=== PATIENT | female | born 1930 | race Caucasian/White ===

== ENCOUNTER 2016-06-25 14:22 | Observation (INO) | payer MEDICARE, OTHER ==
[~2016-06-25] VITALS: Ht 160 cm; Wt 74.0 kg
[~2016-06-25 14:22] MED LIST: APIX5TAB PO; CHOL5000 PO; DEXI60CA PO; DICL1GEL7 TOPICAL; GABA100C4 PO; ISOS60TA PO; LEVO50TA4 PO; MECL1TAB7 PO; METO25TA6 PO; NAPR220T95 PO; NITR1SUB3 SL; ROSU5 PO
[2016-06-25 15:06] VITALS: BP 183/88; PULSE 102; RESP 32; TEMP 97.9; O2SAT 97
[2016-06-25] MEDS ORDERED: ASPIRIN 81 MG CHEW TAB PO ONE (15:15)
[2016-06-25] MEDS ORDERED: SODIUM CHLORIDE 0.9% FLUSH 10 ML FLUSH IVF PRN (15:15)
--- NOTE | 2016-06-25 15:16 | PD ---
HPI Chief Complaint: Chest Pain Time Seen by Provider: 15:16 Travel History International Travel<30 days: No Contact w/Intl Traveler<30days: No Traveled to known affect area: No History of Present Illness HPI 85-year-old female with history of atrial fibrillation, pacemaker implantation, hypertension, hypothyroidism presents to the emergency department for evaluation of chest pain. Patient states that she has had midsternal dull aching chest pain intermittently with exertion for the past year. States that this pain has been very sporadic until the last week when it has been occurring daily. States that with minimal exertion this chest pain is brought on and it is alleviated with rest. States that today she was not feeling well and tried to eat lunch but became very nauseous and had multiple episodes of nonbloody nonbilious emesis. States that with this nausea and vomiting she was experiencing the chest pain, lightheadedness and diaphoresis. She denies fever , chills, shortness of breath, difficulty breathing, abdominal pain, diarrhea, constipation, cough or cold symptoms. She has nitroglycerin tablets that are prescribed to her but has not taken any of these for her chest pain. She denies any history of DC. States that her last heart catheterization was 2 years ago but thinks that this was for her atrial fibrillation. Denies any history of stent placement for coronary artery disease. Last stress test 2 years ago. She is anticoagulated on Eliquis. Assistant Wrestling Coach is Dr. Frankel. PCP Dr. Bruno. No other complaints. 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) Cardiac Catheterization: Yes Cardiovascular Problems: Yes Diabetes: No Diminished Hearing: No Endocrine: No Gastrointestinal Disorders: Yes GERD: Yes (FOR 15 YRS) Genitourinary: No Hepatitis: No Hiatal Hernia: Yes Hypertension: Yes Immune Disorder: No Medical other: Yes (IBS, GERD, MACULAR DEGENERATION) Psychiatric: No Reproductive: No Thyroid Disease: No ?: Not Past Surgical History Abdominal Surgery: Yes (CHOLECYSTECTOMY, HIATAL HERNIA REPAIREDX3) Cardiac Surgery: No Cholecystectomy: Yes Ear Surgery: No Endocrine Surgery: No Eye Surgery: Yes (CATARACT BILATERALLY) Genitourinary Surgery: Yes (TUMOR REMOVED FROM BLADDER) Gynecologic Surgery: Yes (HYSTERECTOMY) Oral Surgery: Yes (TONSILECTOMYX3) Pacemaker: Yes Thoracic Surgery: No Tonsillectomy: Yes Other Surgery: Yes Social History Alcohol Use: No Tobacco Use: No Substance Use: No Allergies-Medications (Allergen,Severity, Reaction): Coded Allergies: Iodine (Verified Allergy, Severe, 05/22/16) Sulfa (Verified Allergy, Severe, 05/22/16) Erythromycin (Verified Adverse Reaction, Severe, N/V, 06/25/16) Reported Meds & Prescriptions Reported Meds & Active Scripts Active Reported Diclofenac Topical 1% Gel 1 Applic TOPICAL QID Crestor (Rosuvastatin Calcium) 5 Mg Tab 5 Mg PO DAILY Vitamin D3 (Cholecalciferol) 5,000 Unit Cap 5,000 Units PO DAILY Eq Motion Sickness Relief (Meclizine HCl) 25 Mg Tab 12.5 Tab PO BID Eliquis (Apixaban) 5 Mg Tab 5 Mg PO BID Metoprolol Succinate ER 24 HR (Metoprolol Succinate) 25 Mg Tab 25 Mg PO DAILY Isosorbide Mononitrate ER (Isosorbide Mononitrate) 60 Mg Tab 60 Mg PO DAILY Gabapentin 100 Mg Cap 100 Mg PO BID Dexilant (Dexlansoprazole) 60 Mg Cap 60 Mg PO BID Levothyroxine (Levothyroxine Sodium) 50 Mcg Tab 50 Mcg PO DAILY Aleve (Naproxen Sodium) 220 Mg Tab 220 Mg PO BID PRN Nitroglycerin SL (Nitroglycerin) 0.4 Mg Subl 0.4 Mg SL DIRECTED PRN ONE TABLET UNDER THE TONGUE NEEDED FOR CHEST PAIN, MAY REPEAT EVERY FIVE MINUTES FOR A TOTAL OF 3 DOSES OR CALL 911 IF NO RELIEF Review of Systems Except as stated in HPI: all other systems reviewed are Neg Physical Exam Narrative GENERAL: Well-nourished and well-developed pleasant elderly female patient in no acute distress. SKIN: Warm and dry. HEAD: Normocephalic and atraumatic. EYES: No injection, drainage, or hyphema noted. PERRLA. EOMI. ENT: No nasal drainage noted. Oropharynx is clear. NECK: Supple and the trachea is midline. CARDIOVASCULAR: Regular rate and rhythm. RESPIRATORY: Breath sounds are equal bilaterally with no accessory muscle use, wheezing, rhonchi, or crackles. GASTROINTESTINAL: Abdomen is soft, non-tender, and nondistended. MUSCULOSKELETAL: No obvious deformities, swelling, cyanosis, or ecchymosis is present throughout the upper and lower extremities. Patient has full range of motion without any signs of neurovascular compromise. NEUROLOGICAL: Awake, alert, and oriented. Normal speech and gait. Cranial nerves are grossly intact. Data Data Last Documented VS Vital Signs Date Time Temp Pulse Resp B/P Pulse Ox O2 Delivery O2 Flow Rate FiO2 06/25/16 16:49 72 20 154/70 99 Nasal Cannula 2 06/25/16 15:06 97.9 Orders Electrocardiogram (06/25/16 15:13) Basic Metabolic Panel (Bmp) (06/25/16 15:13) B-Type Natriuretic Peptide (06/25/16 15:13) Ckmb (Isoenzyme) Profile (06/25/16 15:13) Complete Blood Count With Diff (06/25/16 15:13) Comprehensive Metabolic Panel (06/25/16 15:13) Magnesium (Mg) (06/25/16 15:13) Prothrombin Time / Inr (Pt) (06/25/16 15:13) Act Partial Throm Time (Ptt) (06/25/16 15:13) Troponin I (06/25/16 15:13) Lipase (06/25/16 15:13) Chest, Single Ap (06/25/16 15:13) Ecg Monitoring (06/25/16 15:13) Bilateral Bp Monitoring (06/25/16 15:13) Iv Access Insert/Monitor (06/25/16 15:13) Oximetry (06/25/16 15:13) Sodium Chloride 0.9% Flush (Ns Flush) (06/25/16 15:15) Nitroglycerin Sl (Nitrostat Sl) (06/25/16 15:15) Aspirin Chew (Aspirin Chew) (06/25/16 15:15) Admit Order (Ed Use Only) (06/25/16 16:54) Activity Bed Rest With Brp (06/25/16 16:54) Vital Signs (Adult) Q4H (06/25/16 16:54) Cardiac Rhythm .As Directed (06/25/16 16:54) ^ Notify Dr: Other .PRN (06/25/16 16:54) ^ Notify Dr. Parameters (06/25/16 16:54) Resp Oxygen Nasal Cannula (06/25/16 ) Diet Npo (06/26/16 Breakfast) Diet Heart Healthy (06/25/16 Dinner) Ckmb (Isoenzyme) Profile (06/25/16 18:50) Ckmb (Isoenzyme) Profile (06/25/16 21:50) Troponin I (06/25/16 18:50) Troponin I (06/25/16 21:50) Electrocardiogram (06/25/16 16:54) Electrocardiogram (06/25/16 19:54) ^ Obtain (06/25/16 16:54) Sodium Chloride 0.9% Flush (Ns Flush) (06/25/16 17:00) Sodium Chloride 0.9% Flush (Ns Flush) (06/25/16 21:00) Acetaminophen (Tylenol) (06/25/16 17:00) Ondansetron Inj (Zofran Inj) (06/25/16 17:00) Clinical Material Handler / Telemetry CANELO.Q8H (06/25/16 16:54) Labs Laboratory Tests Test 06/25/16 15:50 White Blood Count 8.5 TH/MM3 Red Blood Count 3.90 MIL/MM3 Hemoglobin 11.1 GM/DL Hematocrit 35.1 % Mean Corpuscular Volume 90.1 FL Mean Corpuscular Hemoglobin 28.6 PG Mean Corpuscular Hemoglobin 31.7 % Concent Red Cell Distribution Width 15.0 % Platelet Count 151 TH/MM3 Mean Platelet Volume 7.7 FL Neutrophils (%) (Auto) 76.1 % Lymphocytes (%) (Auto) 15.0 % Monocytes (%) (Auto) 7.2 % Eosinophils (%) (Auto) 1.2 % Basophils (%) (Auto) 0.5 % Neutrophils # (Auto) 6.4 TH/MM3 Lymphocytes # (Auto) 1.3 TH/MM3 Monocytes # (Auto) 0.6 TH/MM3 Eosinophils # (Auto) 0.1 TH/MM3 Basophils # (Auto) 0.0 TH/MM3 CBC Comment DIFF FINAL Differential Comment Prothrombin Time 12.7 SEC Prothromb Time International 1.1 RATIO Ratio Activated Partial 24.7 SEC Thromboplast Time Sodium Level 141 MEQ/L Potassium Level 3.7 MEQ/L Chloride Level 109 MEQ/L Carbon Dioxide Level 22.3 MEQ/L Anion Gap 10 MEQ/L Blood Urea Nitrogen 18 MG/DL Creatinine 1.09 MG/DL Estimat Glomerular Filtration 48 ML/MIN Rate Random Glucose 102 MG/DL Calcium Level 8.5 MG/DL Magnesium Level 1.9 MG/DL Total Bilirubin 0.2 MG/DL Aspartate Amino Transf 23 U/L (AST/SGOT) Alanine Aminotransferase 18 U/L (ALT/SGPT) Alkaline Phosphatase 83 U/L Total Creatine Kinase 67 U/L Troponin I LESS THAN 0.02 NG/ML B-Type Natriuretic Peptide 171 PG/ML Total Protein 6.4 GM/DL Albumin 3.2 GM/DL Lipase 50 U/L MDM Medical Decision Making Medical Screen Exam Complete: Yes Emergency Medical Condition: Yes Differential Diagnosis ACS versus pleurisy versus unstable angina versus chest wall pain versus other Narrative Course 85-year-old female is brought to the emergency department by EMS for evaluation of exertional chest pain. Patient is afebrile, vital signs are stable. She is initially hypertensive with a blood pressure 183/88. EKG shows electronic atrial pacemaker with a ventricular rate of 70 bpm, no acute ST elevations or depressions. IV access is obtained, labs were drawn and sent. Patient is administered aspirin. CBC shows mild anemia with hemoglobin 11.1, otherwise unremarkable. CMP shows mild renal insufficiency with a creatinine of 1.09, GFR 48. This is consistent with previous lab values. Troponin is less than 0.02. BNP is minimally elevated at 171. Coags are unremarkable. Chest x-ray is negative for any acute abnormalities. Patient's blood pressure has improved after 3 nitroglycerin tablets. States her chest pain is also improved. She has remained stable here in the emergency department. She'll be admitted to chest pain center for repeat cardiac enzymes , EKGs and possible stress testing. I discussed the case with my attending physician Dr. Hunter who is aware of the patients history, physical examination findings, and treatment plan. Diagnosis Primary Impression: Chest pain Qualified Code: R07.9 - Chest pain, unspecified type Admitting Information Admitting Physician Requests: Observation Saadia Chadwick Jun 25, 2016 15:16 Saadia Chadwick Jun 25, 2016 15:16
[2016-06-25] MEDS: NITROGLYCERIN 0.4 MG SL 25 TABS/BTL SL SCH ×3 (15:49→17:25)
[2016-06-25 16:12] VITALS: BP 168/72; PULSE 76; RESP 20; O2SAT 89
[2016-06-25 16:14] LABS: APTT (PATIENT) 24.7 SEC (24.3-30.1); INTERNATIONAL NORMALIZED RATIO 1.1 RATIO; PROTHROMBIN TIME - PATIENT 12.7 SEC (9.8-11.6)
--- NOTE | 2016-06-25 16:20 | RADRPT ---
EXAM DATE/TIME: 06/25/2016 15:22 [facility] COMPARISON: No previous studies available for comparison. INDICATIONS : Nausea, and chest pain. MEDICAL HISTORY : Atrial fibrillation SURGICAL HISTORY : Pacemaker. ENCOUNTER: Initial ACUITY: 1 day PAIN SCORE: 4/10 LOCATION: Bilateral chest FINDINGS: Single portable frontal view the chest shows top normal heart size. A dual-lead pacing device overlie s the left chest. Chronic interstitial changes within the bases. No infiltrate or effusion. Eventrati on of the right hemidiaphragm. Cement augmentation changes at the thoracolumbar junction. CONCLUSION: No acute cardiopulmonary disease. Ritesh Roman Jr., MD on June 25, 2016 at 16:17 Board Certified Radiologist. This report was verified electronically.
[2016-06-25 16:35] LABS: ANION GAP 10 MEQ/L (5-15); AST (GOT) 23 U/L (15-37); AUTOMATED NEUTROPHIL # 6.4 TH/MM3 (1.8-7.7); BASOPHIL % 0.5 % (0.0-2.0); BICARBONATE 22.3 MEQ/L (21.0-32.0); BLOOD UREA NITROGEN 18 MG/DL (7-18); CHLORIDE 109 MEQ/L (98-107); EOSINOPHIL # 0.1 TH/MM3 (0-0.4); EOSINOPHIL % 1.2 % (0.0-4.0); GLOMERULAR FILTRATION RATE 48 ML/MIN (>89); HEMATOCRIT 35.1 % (35.0-46.0); HEMO FLAGS DIFF FINAL; LYMPHOCYTE # 1.3 TH/MM3 (1.0-4.8); MAGNESIUM 1.9 MG/DL (1.5-2.5); MEAN CELL VOLUME 90.1 FL (80.0-100.0); MEAN CORPUSCULAR HEMOGLOBIN 28.6 PG (27.0-34.0); MEAN CORPUSCULAR HGB CONC 31.7 % (32.0-36.0); MONO % 7.2 % (0.0-8.0); NEUT % 76.1 % (16.0-70.0); PLATELET COUNT 151 TH/MM3 (150-450); POTASSIUM 3.7 MEQ/L (3.5-5.1); SODIUM (NA) 141 MEQ/L (136-145); WHITE BLOOD COUNT 8.5 TH/MM3 (4.0-11.0)
[2016-06-25 16:40] LABS: ALKALINE PHOSPHATASE 83 U/L (45-117); ALT (GPT) 18 U/L (10-53); TOTAL BILIRUBIN ADULT 0.2 MG/DL (0.2-1.0)
[2016-06-25 16:47] LABS: CREATINE KINASE 67 U/L (26-192)
[2016-06-25 16:49] VITALS: BP 154/70; PULSE 72; RESP 20; O2SAT 99
[2016-06-25] MEDS ORDERED: ONDANSETRON HCL 4 MG/2 ML VIAL IV PRN (17:00)
[2016-06-25] MEDS ORDERED: ACETAMINOPHEN 500 MG CPLT PO PRN (17:00)
[2016-06-25] MEDS ORDERED: SODIUM CHLORIDE 0.9% FLUSH 10 ML FLUSH IV FLUSH PRN (17:00)
[2016-06-25 17:56] VITALS: O2SAT 99
[2016-06-25 19:40] VITALS: BP_SYST 126; BP_SYST 144; BP_DIAS 65; BP_DIAS 74; PULSE 68; RESP 18; TEMP 98; O2SAT 94
[2016-06-25] MEDS: SODIUM CHLORIDE 0.9% FLUSH 10 ML FLUSH IV FLUSH SCH (21:00)
[2016-06-26] VITALS: BP 131/74; PULSE 88; RESP 18; TEMP 98.4; O2SAT 98
[2016-06-26 01:18] VITALS: PULSE 65
[2016-06-26 04:09] VITALS: BP 149/70; PULSE 63; RESP 18; TEMP 98.8; O2SAT 97
[2016-06-26] MEDS ORDERED: NITROGLYCERIN 0.4 MG SL 25 TABS/BTL SL PRN (08:30)
[2016-06-26] MEDS: SODIUM CHLORIDE 0.9% FLUSH 10 ML FLUSH IV FLUSH SCH (09:00)
[2016-06-26 09:49] VITALS: PULSE 72
[2016-06-26] MEDS ORDERED: PANTOPRAZOLE SOD 40 MG DELAYED RELEASE TAB PO SCH (10:00)
[2016-06-26] MEDS ORDERED: ISOSORBIDE MONONITRATE 60 MG TAB PO SCH (10:00)
[2016-06-26] MEDS ORDERED: LEVOTHYROXINE SODIUM 50 MCG TAB PO SCH (10:00)
[2016-06-26] MEDS ORDERED: CHOLECALCIFEROL (VIT D3) 5000 UNIT CAP PO SCH (10:00)
[2016-06-26] MEDS ORDERED: METOPROLOL SUCCINATE 25 MG EXTENDED RELEASE TAB PO SCH (10:00)
[2016-06-26] MEDS ORDERED: GABAPENTIN 100 MG CAP PO SCH (10:00)
[2016-06-26] MEDS ORDERED: APIXABAN 5 MG TABLET PO SCH (10:00)
[2016-06-26] MEDS ORDERED: ATORVASTATIN 10 MG TAB PO SCH (11:00)
--- NOTE | 2016-06-26 11:28 | HHI.DCPOC ---
Discharge Care Plan Diagnosis: (1) Atypical chest pain Goals to Promote Your Health * To prevent worsening of your condition and complications * To maintain your health at the optimal level Directions to Meet Your Goals Take your medications as prescribed Follow your dietary instruction Follow activity as directed Keep your appointments as scheduled Take your immunizations and boosters as scheduled If your symptoms worsen call your PCP, if no PCP go to Urgent Care Center or Emergency Room Smoking is Dangerous to Your Health. Avoid second hand smoke Call the 24-hour hour crisis hotline for domestic abuse at Rachel Michael Jun 26, 2016 11:28
--- NOTE | 2016-06-26 13:57 | HHI.HP ---
HPI Primary Care Physician Teja Hoffmann MD Chief Complaint Chest pain and nausea History of Present Illness 85-year-old female with history of A. fib, hypertension and hypothyroidism presents to emergency room for further evaluation of chest discomfort. Endorses she has had intermittent chest pressure over the past month or 2. Over the past 2 weeks she has had exertional shortness of breath with mild chest pressure. Chest pain described as a "dull ache" located in her substernal area. No associated symptoms. Precipitating factors seems to be exertion when she gets short of breath. Relieving factors is resting when "I get my breath back." Endorses she is under a lot of stress with a of her close friend last week. Yesterday she had an episode of severe nausea, diaphoresis, and substernal chest discomfort. Vomited multiple nonbloody emesis yesterday. Called a close friend and arrived to ER via back. Endorses constant chest dullness since yesterday afternoon. Review of Systems General: No fatigue,weakness, fever, chills, recent illness, or change in appetite. Has been in her general state of health. HEENT: No CASTILLO, no vision changes, no nasal congestion or drainage, no dysphasia CV: No current chest pain or pressure. No palpitations, intermittent leg pain. Pacemaker placed 3 years ago due to dizziness and syncopal episodes. No recent syncopal episodes. Does not she had syncopal episode yesterday either. History of A. fib. States her A. fib is well controlled. Follows with Dr. Stevenson, cardiology. RESP: Shortness of breath on exertion 2 weeks No cough, wheeze, or upper respiratory infection. No recent use of antibiotics. GI: Nausea improved, no emesis since arrival to ER. In fact states "I am hungry. No bowel changes, diarrhea, constipation, pain, distention, melena, blood in the stool. Endorses intermittent abdominal discomfort. CAT scan of abdomen and pelvis completed by PCP. Has appointment with Dr. Rodriguez in 2 weeks for further evaluation of CAT scan results. Plans for EGD and colonoscopy. No unintentional weight gain or weight loss : No dysuria, urgency, frequency, hematuria, or history of kidney stones EXT: No lower leg edema, no paraesthesias MS: No discomfort or change in ROM NEURO: No change in memory, dizziness, difficulty with balance, LOC, motor/ sensory deficits PSYCH: No anxiety or depression. Endorses situational stress with a depth of a close friend last week. SKIN: No rashes, no concerning lesions Past Family Social History Allergies: Coded Allergies: Iodine (Verified Allergy, Severe, 05/22/16) Sulfa (Verified Allergy, Severe, 05/22/16) Erythromycin (Verified Adverse Reaction, Severe, N/V, 06/25/16) Past Medical History A. fib, hypertension, hypothyroidism, pacemaker hyperlipidemia, GERD Past Surgical History Cholecystectomy, hiatal hernia repair, cataract removal bilateral, tumor removed from bladder, hysterectomy Reported Medications Reported Meds & Active Scripts Active Reported Diclofenac Topical 1% Gel 1 Applic TOPICAL QID Crestor (Rosuvastatin Calcium) 5 Mg Tab 5 Mg PO DAILY Vitamin D3 (Cholecalciferol) 5,000 Unit Cap 5,000 Units PO DAILY Eq Motion Sickness Relief (Meclizine HCl) 25 Mg Tab 12.5 Tab PO BID Eliquis (Apixaban) 5 Mg Tab 5 Mg PO BID Metoprolol Succinate ER 24 HR (Metoprolol Succinate) 25 Mg Tab 25 Mg PO DAILY Isosorbide Mononitrate ER (Isosorbide Mononitrate) 60 Mg Tab 60 Mg PO DAILY Gabapentin 100 Mg Cap 100 Mg PO BID Dexilant (Dexlansoprazole) 60 Mg Cap 60 Mg PO BID Levothyroxine (Levothyroxine Sodium) 50 Mcg Tab 50 Mcg PO DAILY Aleve (Naproxen Sodium) 220 Mg Tab 220 Mg PO BID PRN Nitroglycerin SL (Nitroglycerin) 0.4 Mg Subl 0.4 Mg SL DIRECTED PRN ONE TABLET UNDER THE TONGUE NEEDED FOR CHEST PAIN, MAY REPEAT EVERY FIVE MINUTES FOR A TOTAL OF 3 DOSES OR CALL 911 IF NO RELIEF Active Ordered Medications Current Medications Medications (Trade) Dose Ordered Sig/Son Route Start Time Stop Time Status Last Admin (Tylenol) 500 mg Q4H PRN PO 06/25/16 17:00 06/26/16 04:11 (Zofran Inj) 4 mg Q6H PRN IV 06/25/16 17:00 (Nitrostat Sl) 0.4 mg Q5M PRN SL 06/26/16 08:30 (Eliquis) 5 mg BID PO 06/26/16 10:00 06/26/16 10:17 (Vitamin D3) 5,000 units DAILY PO 06/26/16 10:00 06/26/16 10:16 (Neurontin) 100 mg BID PO 06/26/16 10:00 06/26/16 10:17 (Imdur) 60 mg DAILY PO 06/26/16 10:00 06/26/16 10:17 (Synthroid) 50 mcg DAILY@0600 PO 06/26/16 10:00 06/26/16 10:16 (Toprol Xl) 25 mg DAILY PO 06/26/16 10:00 06/26/16 10:17 (Protonix) 40 mg BID PO 06/26/16 10:00 06/26/16 10:17 (Lipitor) 10 mg DAILY PO 06/26/16 11:00 06/26/16 10:16 Social History , moved from [place] 2 years ago, Lifelong nonsmoker. Denies any alcohol or illegal drug use. Active, as able, on a daily basis. Ambulates independently. Past cardiac testing No recent stress testing. Endorses cardiac catheterization, 2-3 years ago, was told it was normal. Pacemaker. Follows with Dr. Freedman. Physical Exam Vital Signs Vital Signs Date Time Temp Pulse Resp B/P Pulse Ox O2 Delivery O2 Flow Rate FiO2 06/26/16 09:49 72 06/26/16 04:09 98.8 63 18 149/70 97 06/26/16 01:18 65 06/26/16 00:00 98.4 88 18 131/74 98 06/25/16 19:40 98.0 68 18 144/65 94 06/25/16 17:56 99 Nasal Cannula 3.00 06/25/16 16:49 72 20 154/70 99 Nasal Cannula 2 06/25/16 16:12 76 20 168/72 89 Nasal Cannula 2 06/25/16 15:06 97.9 102 32 183/88 97 Physical Exam GENERAL: Alert WN, WD, NAD, pleasant, elderly female HEAD: NC, AT EYES: Sclera clear, conjunctiva without injection, pupils equal and round ENT: Mucous membranes pink and moist NECK: Supple, trachea midline CV: RRR, without murmur, rub, gallop, no JVD, S1-S2 no S3-S4. RESP: Clear lungs throughout bilateral, no crackles, wheeze, rhonchi, symmetrical chest rise, nonlabored, able to speak in full sentences ABD: Soft, NT, ND, no masses, positive bowel tones EXT: Pulses +24, no dependent edema MS: Normal tone 4 extremities, nontender, no obvious deformities, full range of motion NEURO: CN II through CN XII grossly intact, motor strength 5/5, gait WNL PSYCH: A+O 3, pleasant affect, appropriate speech, appropriate mood and affect , insight and judgment SKIN: Normal turgor, normal texture, no lesions, no rashes, brisk cap refill, even hair distribution Laboratory Laboratory Tests Test 06/25/16 06/25/16 06/25/16 06/26/16 15:50 18:45 21:50 10:45 White Blood Count 8.5 Red Blood Count 3.90 Hemoglobin 11.1 Hematocrit 35.1 Mean Corpuscular Volume 90.1 Mean Corpuscular Hemoglobin 28.6 Mean Corpuscular Hemoglobin 31.7 Concent Red Cell Distribution Width 15.0 Platelet Count 151 Mean Platelet Volume 7.7 Neutrophils (%) (Auto) 76.1 Lymphocytes (%) (Auto) 15.0 Monocytes (%) (Auto) 7.2 Eosinophils (%) (Auto) 1.2 Basophils (%) (Auto) 0.5 Neutrophils # (Auto) 6.4 Lymphocytes # (Auto) 1.3 Monocytes # (Auto) 0.6 Eosinophils # (Auto) 0.1 Basophils # (Auto) 0.0 CBC Comment DIFF FINAL Differential Comment Prothrombin Time 12.7 Prothromb Time International 1.1 Ratio Activated Partial 24.7 Thromboplast Time Sodium Level 141 Potassium Level 3.7 Chloride Level 109 Carbon Dioxide Level 22.3 Anion Gap 10 Blood Urea Nitrogen 18 Creatinine 1.09 Estimat Glomerular Filtration 48 Rate Random Glucose 102 Calcium Level 8.5 Magnesium Level 1.9 Total Bilirubin 0.2 Aspartate Amino Transf 23 (AST/SGOT) Alanine Aminotransferase 18 (ALT/SGPT) Alkaline Phosphatase 83 Total Creatine Kinase 67 60 58 Troponin I LESS THAN 0.02 0.02 0.02 B-Type Natriuretic Peptide 171 Total Protein 6.4 Albumin 3.2 Lipase 50 D-Dimer Quantitative (PE/DVT) 0.34 Result Diagram: 06/25/16 1550 06/25/16 1550 Imaging Last Impressions Chest X-Ray 06/25/16 1513 Signed Impressions: Service Date/Time: Saturday, June 25, 2016 15:22 - CONCLUSION: No acute cardiopulmonary disease. Ritesh Roman Jr., MD Course EKGs Atrial paced, no ST or T-segment changes Assessment and Plan Assessment and Plan #1 Chest painadmitted to chest pain center. Ruled out with 3 sets of EKGs, cardiac enzymes, and monitored overnight. Was seen and evaluated by Dr. Yesy Fernandez. Call patient's marine technician, Dr. Stevenson, to discuss plan of care. [facility] patient had a cardiac catheterization 2 years ago with the conclusion of normal coronary arteries. No further cardiac testing required. Dr. Stevenson request to see patient in 7-10 days after being ruled out for PE. #2 A. fibcontinue antiarrhythmics and eliquis #3 Hypothyroidismcontinue levothyroxine #4 Nauseaimproved, tolerating diet, follow with PCP as needed. She appointment with GI consult. Rachel Michael Jun 26, 2016 13:57
--- NOTE | 2016-06-26 21:38 | EKG ---
Date Performed: 06/25/2016 Time Performed: 21:46:22 PTAGE: 85 years EKG: ELECTRONIC ATRIAL PACEMAKER ABNORMAL RHYTHM ECG Since PREVIOUS TRACING , no significant change noted PREVIOUS TRACIN06/25/2016 18.47 DOCTOR: Yesy Fernandez Interpretating Date/Time 06/26/2016 21:37:26
--- NOTE | 2016-06-26 21:39 | EKG ---
Date Performed: 06/25/2016 Time Performed: 18:47:46 PTAGE: 85 years EKG: ELECTRONIC ATRIAL PACEMAKER ABNORMAL RHYTHM ECG Since PREVIOUS TRACING , no significant change noted PREVIOUS TRACIN06/25/2016 15.39 DOCTOR: Yesy Fernandez Interpretating Date/Time 06/26/2016 21:38:13
--- NOTE | 2016-06-27 14:33 | EKG ---
Date Performed: 06/25/2016 Time Performed: 15:39:00 PTAGE: 85 years EKG: ELECTRONIC ATRIAL PACEMAKER ABNORMAL RHYTHM ECG Since PREVIOUS TRACING , no significant change noted PREVIOUS TRACIN11/18/2010 11.40 DOCTOR: Yesy Fernandez Interpretating Date/Time 06/27/2016 14:31:07
== END 2016-06-26 16:05 | disposition home or self-care (01) ==
LOC: NEPC 14:22 → NEDA 17:00 → NEPGCP 20:14
PROVIDERS: ADMIT Internal Medicine Cardiovascular Disease; ATTEND Internal Medicine Cardiovascular Disease
DX: R07.9 Chest pain, unspecified (principal); I48.91 Unspecified atrial fibrillation; I10 Essential (primary) hypertension; E03.9 Hypothyroidism, unspecified; R11.2 Nausea with vomiting, unspecified; R61 Generalized hyperhidrosis; R42 Dizziness and giddiness; Z79.01 Long term (current) use of anticoagulants; Z85.51 Personal history of malignant neoplasm of bladder; K21.9 Gastro-esophageal reflux disease without esophagitis; K44.9 Diaphragmatic hernia without obstruction or gangrene; Z79.899 Other long term (current) drug therapy; D64.9 Anemia, unspecified; N28.9 Disorder of kidney and ureter, unspecified; E78.5 Hyperlipidemia, unspecified; Z95.0 Presence of cardiac pacemaker
CPT/HCPCS: 71010; 80053; 82550; 83690; 83735; 83880; 84484; 85025; 85379; 85610; 85730; 93005; 99285; G0378

== ENCOUNTER 2016-08-13 07:37 | Day surgery (SDC) | payer MEDICARE, OTHER ==
[~2016-08-13] VITALS: Ht 160 cm; Wt 74.5 kg
[2016-08-13 08:43] VITALS: BP 132/74; PULSE 93; RESP 16; TEMP 97.9; O2SAT 97
[2016-08-13 09:09] LABS: AUTOMATED NEUTROPHIL # 4.3 TH/MM3 (1.8-7.7); BASOPHIL # 0.1 TH/MM3 (0-0.2); EOSINOPHIL # 0.3 TH/MM3 (0-0.4); EOSINOPHIL % 4.3 % (0.0-4.0); HEMATOCRIT 36.2 % (35.0-46.0); HEMO FLAGS DIFF FINAL; LYMPH % 29.3 % (9.0-44.0); LYMPHOCYTE # 2.2 TH/MM3 (1.0-4.8); MEAN CELL VOLUME 87.9 FL (80.0-100.0); MEAN CORPUSCULAR HEMOGLOBIN 28.9 PG (27.0-34.0); MEAN CORPUSCULAR HGB CONC 32.9 % (32.0-36.0); MONO % 8.6 % (0.0-8.0); NEUT % 56.8 % (16.0-70.0); PLATELET COUNT 132 TH/MM3 (150-450); RED BLOOD COUNT 4.12 MIL/MM3 (4.00-5.30); RED CELL DISTRIBUTION WIDTH 14.9 % (11.6-17.2); WHITE BLOOD COUNT 7.6 TH/MM3 (4.0-11.0)
[2016-08-13] MEDS ORDERED: NS 1000P @30 MLS/HR (KVO) IV SCH (09:15)
[2016-08-13] MEDS ORDERED: ASPIRIN 325 MG TAB PO SCH (09:15)
[2016-08-13] MEDS ORDERED: HEPARIN-NS/PF INJ 500 ML ONE (09:19)
[2016-08-13] MEDS ORDERED: diphenhydrAMINE HCL 50 MG/ML VIAL ONE (09:19)
[2016-08-13] MEDS ORDERED: HYDROCORTISONE SOD SUCCINATE 100 MG VIAL ONE (09:20)
[2016-08-13] MEDS ORDERED: HYDROCORTISONE SOD SUCCINATE 100 MG VIAL IV PUSH SCH (09:30)
[2016-08-13 09:33] LABS: BICARBONATE 26.5 MEQ/L (21.0-32.0)
[2016-08-13 09:34] LABS: POTASSIUM 4.8 MEQ/L (3.5-5.1)
--- NOTE | 2016-08-13 10:53 | MA ---
cc: BALWINDER CARDONA M.D., WAHBA MAKARY, WAFIK F. M.D. DATE: 08/13/2016 PROCEDURE 1. Left heart cath. 2. Coronary arteriogram. 3. Left ventriculogram. 4. Right femoral arteriogram. 5. Right femoral arteriotomy site closure using a StarClose device. WAREHOUSE TRAFFIC SUPERVISOR Balwinder Cardona MD INDICATION Recurrent chest tightness despite medical therapy and an abnormal nuclear stress study. Because of her persistent symptoms she was advised to proceed with a cardiac catheterization. (please refer to further details per my H&P attached to the chart). EQUIPMENT 6-Iraqi short sheath. 0.035 J guidewire. 6-Iraqi JL-4, JR-4 and pigtail diagnostic catheters. A StarClose device. PROCEDURE After obtaining informed consent the right groin was prepped in the usual sterile fashion. 15 ccs of 1% were used for local anesthesia. Using the modified Seldinger technique the right femoral artery was cannulated and 6-Iraqi short sheath was inserted in the right femoral artery. Using the above-mentioned diagnostic catheters selective coronary angiograms were performed. This was followed by left ventriculogram performed in the ESCOBAR view at 30 degree angle. At the end of the procedure right femoral system was injected revealing no significant disease and a StarClose device was applied achieving adequate hemostasis. The patient tolerated the procedure well without acute complication at the time of dictation. CARDIAC CATHETERIZATION FINDINGS HEMODYNAMICS Aortic pressure was 170. 5/75 mmHg. Mean aortic pressure 108 mmHg. There was no gradient across the aortic valve. Left ventricular end-diastolic pressure was 22 mmHg. CORONARIES Left main artery was from left sinus of Valsalva. This had an ostial less than 10% disease. Left anterior descending artery branched from the left main artery, had somewhat calcified proximal 20% to mid 30% disease at the site of a diagonal branch. This diagonal branch had an ostial 60-70% stenosis and the proximal 40% disease. The LAD then extended distally to wrap around the apex in a tortuous fashion with diffuse irregularities ranging between 20-30%. It gave other diagonal septal branches of mild luminal irregularities of less than 20%. Left circumflex artery branched from the left main artery. This was relatively small caliber vessel and had mild diffuse irregularities of less than 10%. Giving atrial branch from the distal portion that was within normal limits. Ramus intermediate artery branched from the left main artery also had mild irregularities of less than 20%. Right coronary artery was from right sinus of Valsalva and this was a dominant vessel, the ostium had a 30-40% narrowing, somewhat calcified. No damping of pressure upon cannulation. The mid RCA had 20-30% diffuse irregularities. Distally it gave a PDA and PLV arteries that had multiple other smaller branches, with minimal irregularities. The PDA had an ostial 20-30%. The mid RV branch had mild luminal irregularities of less than 20%. Left ventriculogram revealed adequate wall motion, preserved systolic function. Ejection fraction visual estimate around 60-65%. CONCLUSION OF CARDIAC CATHETERIZATION 1. Mild epicardial coronary artery disease, calcified. Mild disease of the LAD and the right coronary artery. 2. ____ significant ostial diagonal branch disease, relatively small caliber (2.0 mm) will be treated medically. 3. Normal left ventricular systolic function. 4. Elevated left ventricular end-diastolic pressure. RECOMMENDATION Recommendations would be medical therapy with tight control of risk factors. MD MORGAN Trinidad/AWILDA /10:20 AM /10:32 AM
--- NOTE | 2016-08-13 11:30 | EKG ---
Date Performed: 08/13/2016 Time Performed: 08:51:12 PTAGE: 85 years EKG: Demand atrial pacing. Abnormal ECG PREVIOUS TRACING : 06/25/2016 21.46 DOCTOR: Anson Adams Interpretating Date/Time 08/13/2016 11:28:14
[2016-08-13] MEDS ORDERED: IOHEXOL 350 MG/ML 50 ML BTL (for Cath Lab) OTHER ONE (11:34)
--- NOTE | 2016-08-13 11:41 | CATHPROC ---
[employer] HIS Report Study Information Study Number Admission Scheduled Start Study Start [id number] 08/13/2016 08/13/2016 Aug 13 2016 8:20AM Referring Institution Admit Source Facility Department 1 Other [facility] Dietary Tech Physician and Clinical Staff Initial Balwinder Orellana Insurance Administrative Assistant Sudha Gold,SHU Recorder Lissy Jonas,RT(R) (BS) Scrub Ludin Salinas RCIS(BS) Procedures Performed Procedure Location (Site) Vessel Name Angiogram LV LV Ventricle Coronary Angiograms LCA Left Coronary Coronary Angiograms RCA Right Coronary L Heart Cath Equipment Time Freight Receiver Description Size Mfg Part Number Used/Scraped STARCLOSE, VASCULAR CLOSER 09:59 [place] [id number] Used SYSTEM TRANSDUCER, TRUWAVE 08:21 [employer]blob * [id number] Used W/STOCKCOCK [id number] *[id number] *[id number] PIGTAIL ANG. 145 INFINITI [id number] CATHETER *[id number] 08:21 [employer] PACK, CCL CUSTOM * Used *[id number] 08:21 GLOG PACER PEN, SKIN DUAL W/ RULER * [id number] Used [id number] 08:21 [facility] MEDICAL SHEATH, FR6.5 PRELUDE 11CM FR 6.5 038ACT Used *[id number] 08:21 [facility] MEDICAL WIRE, 3MMJ .035 180CM 180CM Used *[id number] 08:21 NAMIC MANIFOLD, 4 PORT * Used *[id number] 08:21 [employer] OMNIPAQUE, 350 MG, 100ML 100ML [id number] Used [id number] 08:21 [employer] MED[employer] BLANKET,WARM AIR CCL * Used *[id number] History: Current Medications Medication Dosage/Unit Route Frequency Last Date/Time Taken CRESTOR Beta Archana History: Allergies Allergy Reaction Erythromycin N/V Iodine Sulfa Ranexa History: Risk Factors Family History of Hypertension Dyslipidemia Previous KS Previous Heart Failure Premature CAD Yes Yes No No No Prior Valve Prior PCI Prior CABG Surgery No No No Cerebrovascular Peripheral Artery Chronic Lung On Dialysis Diabetes Disease Disease Disease No Yes No Yes No History: Symptoms/Diagnosis Selection Items Chest pain History: Stress Tests Stress or Imaging Studies Performed No History: Other Current Smoker No Labs Hgb (g/dl) Hct (%) RBC (MIL/MM3) WBC (l/cumm) Platelets (thousands) 12.00-18.00 37.00-55.00 4.80-6.20 4.80-10.80 140.00-450.00 11.9 36.2 4.1 7.6 132 Glucose (mg/dl) BUN (mg/dl) Creatinine (mg/dl) BUN:Creatinine (1:x) 60.00-110.00 8.00-20.00 0.10-9.00 10.00-20.00 93 21 1.2 17.5 Na (meq/l) K (meq/l) Cl (meq/l) CO2 (mmol/L) 138.00-146.00 3.80-5.10 101.00-111.00 23.00-30.00 143 4.8 107 26.5 CPK-MB (ng/ML) 0.00-7.00 Not Drawn Medication Medication Total Dose (Bolus/Oral) Medication Total Dosage/Unit 1% XYLOCAINE 20 mL BENADRYL 50 mg FENTANYL 50 mcg HEPARIN 1000 units NTG (IC) 100 mcg SOLU-CORTEF 100 mg Medications (Bolus/Oral) Medication Time Given Dosage/Unit Administered By Reason SOLU-CORTEF 08/13/2016 9:26:51 AM 100 mg Mrache, Sudha 100 mg SOLU-CORTEF given pre op by Sudha Gold RN in Right Wrist via Peripheral IV. BENADRYL 08/13/2016 9:32:52 AM 50 mg Mrache, Sudha 50 mg BENADRYL given in lab by Sudha Gold RN in Right Wrist via Peripheral IV. FENTANYL 08/13/2016 9:33:08 AM 50 mcg Mrache, Sudha 50 mcg FENTANYL given in lab by Sudha Gold RN in Right Wrist via Peripheral IV. 1% XYLOCAINE 08/13/2016 9:34:33 AM 20 mL Balwinder Stevenson 20 mL 1% XYLOCAINE given in lab by Balwinder Stevenson in Right Groin via Subcutaneous. HEPARIN 08/13/2016 9:41:53 AM 1000 units Balwinder Stevenson 1000 units HEPARIN given in lab by Balwinder Stevenson in Right Groin via Intra-arterial. NTG (IC) 08/13/2016 9:44:51 AM 100 mcg Balwinder Stevenson 100 mcg NTG (IC) given in lab by Balwinder Stevenson in Right Groin via Intra-coronary. Medication (Drip) Medication Time Given Dosage/Unit Concentration/Unit Diluent (ml) Solutio n IV Solutions 08/13/2016 9:16:41 AM 0 mL (IV) 500 NaCl .9 IV Solutions given in lab by Sudha Gold RN in Right Wrist via Peripheral IV. Pump/Drip Flow = 20 ml/hr using NaCl .9. Initial Case Assessment Cardiovascular HR Rhythm NIBP Chest Pain 90 reg 145/73 0 Edema Present Skin color Skin None Normal Warm Dry Circulatory - Right Pulses Dorsalis Pedis Femoral 1 1 Scale (0,1,2,3,4,d) Circulatory - Left Pulses Dorsalis Pedis Femoral 1 1 Scale (0,1,2,3,4,d) Circulatory - Lower Extremities Color Lower Right Color Lower Left Normal Normal Neurological State Oriented to time-place- Moves all extremities person Respiration - General Respiration Rate SpO2 (%) (B/min) 13 99 Chronological Log Time Study Chronological Log 9:16:11 Patient arrived via Bed. 9:16:12 Patient Name, D.O.B, / Armband Verified By R.N. 9:16:14 Consent signed by the physician and the patient and verified by the Dietary Tech staff. 9:16:15 Pre-op and post- op instructions given; patient acknowledges understanding of instructions. 9:16:32 Presedation assessment performed by Dietary Tech RN. 9:16:35 Patient has been NPO for More than 6Hrs. 9:16:36 Skin Breakdown none per pt 9:16:38 Patient Warmer Placed on the Table. 9:16:39 Chung Prominences Protected 9:16:39 A # 22 IV was noted in the Wrist (right). Grade = 0 IV Solutions given in lab by Sudha Gold, SHU in Right Wrist via Peripheral IV. Pump/Drip F low = 20 ml/hr using 9:16:41 NaCl .9. 9:16:42 History and physical on the chart or being dictated. Assessment: Initial Case, HR=90 BPM, Rhythm=reg, VESP=376/73 mmhg, Chest Pain=0, Edema=None, Col or=Normal, Skin = Warm, Dry Right Pulses: Karson Ped=1, Femoral=1 Left Pulses: Karson Ped=1, Femoral=1 9:16:45 Lower Right Extremities: Color=Normal Lower Left Extremities: Color=Normal Neurological: Ox3, SHELTON Respiration: Resp=13 B/min, SpO2=99 % Vitals capture started with the following parameters, Patient=Adult, Interval=15 min, Initial Pr padoye=641 mmHg, 9:21:25 Deflation Rate=5 mmHg 9:22:06 HR=90 bpm, VTKD=003/73 mmhg, SpO2=98.0 %, Resp=12 B/min, Pain=0, Ailyn=10, Cohen=2 9:24:41 Bilateral groins prepped with 2% chlorhexidine, and with a 3 min. waiting time. 9:26:51 100 mg SOLU-CORTEF given pre op by Sudha Gold, SHU in Right Wrist via Peripheral IV. 9:27:29 HR=89 bpm, VKPT=139/82 mmhg, LtN3=327.0 %, Resp=24 B/min, Pain=0, Ailyn=10, Cohen=2 9:27:49 MD arrived Time Out. Correct patient, correct procedure,correct physician, power injector not loaded with c ontrast with surgical 9:30:15 team present. Time Out Concurred by MD, individual staff in procedure 9:30:34 Case Start 9:32:06 HR=91 bpm, SXJT=482/82 mmhg, SpO2=96.0 %, Resp=10 B/min, Pain=0, Ailyn=10, Cohen=2 9:32:37 Pressure channel 1 zeroed. 9:32:52 50 mg BENADRYL given in lab by Sudha Gold, SHU in Right Wrist via Peripheral IV. 9:33:08 50 mcg FENTANYL given in lab by Sudha Gold, SHU in Right Wrist via Peripheral IV. 9:33:26 Reference ECG taken 9:34:33 20 mL 1% XYLOCAINE given in lab by Balwinder Stevenson in Right Groin via Subcutaneous. 9:36:11 Access site was Right Femoral Artery. 9:36:50 Pressure being held on access site 9:37:05 HR=90 bpm, BFRQ=312/80 mmhg, SpO2=93.0 %, Resp=17 B/min, Pain=0, Ailyn=10, Cohen=2 9:39:28 Access site was Right Femoral Artery. 9:39:53 A SHEATH, FR6.5 PRELUDE 11CM FR 6.5 was advanced into the Fem Art (right) using the Percutan eous technique. 9:41:53 1000 units HEPARIN given in lab by Balwinder Stevenson in Right Groin via Intra-arterial. 9:42:08 HR=98 bpm, BNCU=619/78 mmhg, SpO2=92.0 %, Resp=9 B/min, Pain=0, Ailyn=10, Cohen=2 A JL 4.0 INFINITI CATHETER FR 6 was advanced over a wire. OMNIPAQUE, 350 MG, 100ML 100ML was use d for 9:42:18 injections. Recorded Pressure: Ao, HR=88, Condition=Condition 1 9:44:06 (Aorta) Ao 171/73/120 9:44:51 100 mcg NTG (IC) given in lab by Balwinder Stevenson in Right Groin via Intra-coronary. 9:45:23 The LCA was injected and visualized at various angles. OMNIPAQUE, 350 MG, 100ML 100ML used. 9:47:11 HR=87 bpm, ARNO=504/65 mmhg, SpO2=94.0 %, Resp=12 B/min, Pain=0, Ailyn=10, Cohen=2 After removing the current catheter a JR 4.0 INFINITI CATHETER FR 6 was advanced over a WIRE, 3M MJ .035 180CM 9:47:54 180CM. 9:49:09 The RCA was injected and visualized at various angles. OMNIPAQUE, 350 MG, 100ML 100ML used. After removing the current catheter a PIGTAIL ANG. 145 INFINITI CATHETER FR 6 was advanced over a WIRE, 3MMJ 9:50:36 .035 180CM 180CM. Recorded Pressure: LV, HR=89, Condition=Condition 1 9:51:51 (Left Ventricle) LV 174/6/18 9:52:06 IZ=233 bpm, TJBF=102/76 mmhg, SpO2=93.0 %, Resp=13 B/min, Pain=0, Ailyn=10, Cohen=2 9:52:55 The LV was injected at 10 cc/sec for a total of 22. OMNIPAQUE, 350 MG, 100ML 100ML used. Recorded Pressure: LV, Ao, HR=88, Condition=Condition 1 9:53:37 (Left Ventricle) LV 173/8/22, (Aorta) Ao 175/74/122 9:54:01 Catheter was removed 9:54:13 An injection in the Fem Art (right) was made through the SHEATH, FR6.5 PRELUDE 11CM FR 6.5 . 9:57:09 WO=550 bpm, ARWW=339/77 mmhg, SpO2=95.0 %, Resp=10 B/min, Pain=0, Ailyn=10, Cohen=2 9:57:42 STARCLOSE, VASCULAR CLOSER SYSTEM FR 6 placement in the Fem Art (right) 9:59:57 Case End 10:02:06 HR=94 bpm, ZQJF=856/86 mmhg, SpO2=98.0 %, Resp=33 B/min, Pain=0, Ailyn=10, Cohen=2 10:02:06 Catheter(s) removed without difficulty 10:02:12 No case complications noted. 10:02:15 Cine recording checked. 10:02:21 Bedside Report will be given. 10:02:30 Implantable Device card placed in patient's chart. 10:02:33 Contrast Scanned 10:02:52 A Left Heart Cath was performed. 10:03:01 DOCU called. Spoke to Erin. 10:08:41 Patient moved to [facility] End Study - Contrast Media Used In Study Contrast Total Opened (mL) Total Used (mL) Total Wasted (mL) Omnipaque 50 50 0 End Study - Maximum Contrast Load Max Contrast Load (mL) 310.4 End Study - Radiation Exposure Fluoro Time (minutes) 2.0 End Study - Sheaths Sheaths Pulled By Sheath Hold Time (min) Balwinder Stevenson End Study - Patient Disposition Complications Transferred To Interventional Outcome No Dietary Tech Holding No attempt made
== END 2016-08-13 13:30 | disposition home or self-care (01) ==
LOC: HDOC 07:37 → HDIC 07:38 → HDOC 13:30
PROVIDERS: ATTEND Internal Medicine Interventional Cardiology
DX: I25.10 Atherosclerotic heart disease of native coronary artery without angina pectoris (principal); I25.84 Coronary atherosclerosis due to calcified coronary lesion; I10 Essential (primary) hypertension; E78.5 Hyperlipidemia, unspecified; I48.0 Paroxysmal atrial fibrillation; G47.33 Obstructive sleep apnea (adult) (pediatric); E03.9 Hypothyroidism, unspecified; Z88.2 Allergy status to sulfonamides; Z88.1 Allergy status to other antibiotic agents; Z91.041 Radiographic dye allergy status
CPT/HCPCS: 80048; 85025; 93005; 93458; C1760; C1769; C1893; G0269; J1200; J1644; J1720; J3010; Q9967

== ENCOUNTER 2016-11-17 11:47 | Emergency (ER) | payer MEDICARE, OTHER ==
[~2016-11-17] VITALS: Ht 162.6 cm; Wt 80.0 kg
[~2016-11-17 11:47] MED LIST changes: -CHOL5000 PO
[2016-11-17 11:49] VITALS: BP 186/73; PULSE 76; RESP 20; TEMP 98.2; O2SAT 100
--- NOTE | 2016-11-17 12:02 | PD ---
Physical Exam Date Seen by Provider: Nov 17, 2016 Time Seen by Provider: 11:54 Narrative 85 Y/o female here with Hx sudden onset Back pain while lifting and moving a lamp several days ago. Pain worse with movement and Deep Breath. Pain localized to Mid-lower thoracic region. Hx 3 compression fractures previously. Pain 10/10. No Fever or chills or urinary symptoms. Patient also mentions Blurred vision for the past few days as well. Vital Signs reviewed. Patient is Stable and Awaiting Bed Placement. Data Data Last Documented VS Vital Signs Date Time Temp Pulse Resp B/P (MAP) Pulse Ox O2 Delivery O2 Flow Rate FiO2 11/17/16 11:49 98.2 76 20 186/73 (110) 100 Room Air MDM Medical Record Reviewed: Yes Supervised Visit with LETICIA: Yes Condition: Stable Wilian Tijerina Nov 17, 2016 12:02
--- NOTE | 2016-11-17 14:36 | RADRPT ---
EXAM DATE/TIME: 11/17/2016 13:48 [facility] COMPARISON: No previous studies available for comparison. INDICATIONS : Increased back pain. RADIATION DOSE: 35.86 CTDIvol (mGy) MEDICAL HISTORY : Carcinoma, bladder. Stroke Cardiovascular disease SURGICAL HISTORY : Hysterectomy. Bladder ENCOUNTER: Initial ACUITY: 1 day PAIN SCALE: 9/10 LOCATION: Bilateral back TECHNIQUE: Volumetric scanning of the lumbar spine was performed. Multiplanar reconstructions in the sagittal, coronal and oblique axial planes were performed. Using automated exposure control and adjustment of the mA and/or kV according to patient size, radiation dose was kept as low as reasonably achievable t o obtain optimal diagnostic quality images. DICOM format image data is available electronically for review and comparison. FINDINGS: VERTEBRAE: Cement augmentation changes are noted at T12, L1 and L2. Remaining vertebral body heights are intact. ALIGNMENT: Mild rotary scoliosis of the lower lumbar spine. Mild, 5 mm, dextroscoliosis of L2 on L3. MISC: No gross contour deforming renal abnormality. No significant retroperitoneal adenopathy. No aort ic aneurysm. T12-L1: Cement augmentation of T12 and L1 vertebral bodies. No evidence for retropulsed fragments. Vacuum dis c phenomenon. Bony central canal is grossly patent. Bony neural foramina are grossly patent. L1-L2: Cement augmentation of L1 and L2. Mild diffuse disc bulge. No significant retropulsed fragments. Vacu um disc phenomenon. Bony central canal and neural foramina are patent. L2-L3: Retrolisthesis of L2 on L3. Vacuum disc phenomenon. Posterior disc osteophytes. Facet degenerative ch adriel. Bony central canal is patent. Mild to moderate bilateral neural foraminal stenosis. L3-L4: Diffuse disc bulge, eccentric to the left. Bilateral facet arthropathy. Central canal narrowing to ap proximately 11 mm with effacement of the anterior thecal sac. Mild to moderate left caudal neural for aminal narrowing. L4-L5: Diffuse disc bulge with advanced bilateral facet arthropathy. Bilateral ligamentum flavum hypertrophy . Central canal narrowed to approximately 10 mm. Mild to moderate bilateral caudal neural foraminal n arrowing. L5-S1: Severe disc space loss with endplate sclerosis posterior disc osteophytes and bilateral facet arthrop athy. Mild ligamentum flavum hypertrophy. Mild narrowing of the central canal. Moderate to severe oscar ateral bony neural foraminal narrowing. CONCLUSION: 1. Status post cement augmentation at T12-L2. 2. No evidence for additional compression deformities. Please note that hyperacute fractures may pres ent without significant compression deformity. May obtain a bone scan since patient is not an MRI can didate if there is clinical concern regarding hyperacute fracture with focal physical exam findings. 3. 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 Koko Johnson MD on November 17, 2016 at 14:18 Board Certified Radiologist. This report was verified electronically.
--- NOTE | 2016-11-17 14:38 | RADRPT ---
EXAM DATE/TIME: 11/17/2016 14:08 [facility] COMPARISON: No previous studies available for comparison. INDICATIONS : Back pain since yesterday. MEDICAL HISTORY : Atrial fibrillation SURGICAL HISTORY : Pacemaker. ENCOUNTER: Initial ACUITY: 1 day PAIN SCORE: 9/10 LOCATION: Bilateral Back pain FINDINGS: Dual-lead pacemaker in place. Cement augmentation of T12-L2. Diffuse osteopenia. No significant compr ession deformities of the thoracic spine. Mild elevation of the left hemidiaphragm. No significant fo macrina pleural or parenchymal opacities. Cardiac mediastinal contours are within normal limits. CONCLUSION: 1. Mild elevation left hemidiaphragm. 2. No acute cardiomegaly disease. 3. Diffuse osteopenia and status post T12-L2 cement augmentation. No significant compression deformit ies. Koko Johnson MD on November 17, 2016 at 14:34 Board Certified Radiologist. This report was verified electronically.
[2016-11-17] MEDS ORDERED: DEXI60CA2 PO (15:07)
[2016-11-17] MEDS ORDERED: ALEV220T14 PO (15:07)
--- NOTE | 2016-11-17 15:07 | RADRPT ---
EXAM DATE/TIME: 11/17/2016 13:48 [facility] COMPARISON: No previous studies available for comparison. INDICATIONS : Increased back pain. RADIATION DOSE: 35.86 CTDIvol (mGy) ; Combined studies - Thoracic Spine/Lumbar Spine MEDICAL HISTORY : Cardiovascular disease. Stroke Carcinoma, bladder. SURGICAL HISTORY : bladder, back ENCOUNTER: Initial ACUITY: 1 day PAIN SCALE: 9/10 LOCATION: Bilateral back TECHNIQUE: Volumetric scanning of the thoracic spine was performed. Multiplanar reconstructions in the sagittal , coronal and oblique axial planes were performed. Using automated exposure control and adjustment o f the mA and/or kV according to patient size, radiation dose was kept as low as reasonably achievable to obtain optimal diagnostic quality images. DICOM format image data is available electronically f or review and comparison. FINDINGS: Prior cement augmentation and T12, L1, and L2. Diffuse osteopenia noted. Mild anterior wedging of T3 and T7. No cortical or trabecular irregularity. No retropulsion. Remaining vertebral body heights are maintained. T1-T2: Normal. T2-T3: The thecal sac has a normal diameter. No evidence of disc bulge or protrusion. T3-T4: The thecal sac has a normal diameter. No evidence of disc bulge or protrusion. T4-T5: The thecal sac has a normal diameter. No evidence of disc bulge or protrusion. T5-T6: The thecal sac has a normal diameter. No evidence of disc bulge or protrusion. T6-T7: The thecal sac has a normal diameter. No evidence of disc bulge or protrusion. T7-T8: The thecal sac has a normal diameter. No evidence of disc bulge or protrusion. T8-T9: The thecal sac has a normal diameter. No evidence of disc bulge or protrusion. T9-T10: The thecal sac has a normal diameter. No evidence of disc bulge or protrusion. T10-T11: The thecal sac has a normal diameter. No evidence of disc bulge or protrusion. T11-T12: The thecal sac has a normal diameter. No evidence of disc bulge or protrusion. T12-L1: The thecal sac has a normal diameter. No evidence of disc bulge or protrusion. CONCLUSION: 1. Prior compression deformities at T3, T7, T12, L1, and L2. 2. Prior cement augmentation and T12, L1, and L2. 3. Diffuse osteopenia. 4. Diffuse disc space narrowing and mild osteophyte production with a patent central canal throughout . Ritesh Roman Jr., MD on November 17, 2016 at 15:00 Board Certified Radiologist. This report was verified electronically.
--- NOTE | 2016-11-17 15:14 | PD ---
HPI Chief Complaint: Back/ Neck Pain or Injury Time Seen by Provider: 14:58 Travel History International Travel<30 days: No Contact w/Intl Traveler<30days: No Traveled to known affect area: No History of Present Illness HPI 85-year-old female presents to the emergency department for evaluation of back pain that started approximate 4-5 days ago. She states that she lifted a lamp approximate 6 inches off a table and started with back pain at that time. The patient states she is able to walk with her walker. She states that the pain is worse with movement. Patient denies any fevers. She denies any loss of bowel or bladder control. No saddle anesthesias. She reports history of back injuries with prior compression deformities. She states she has cement augmentation and has been doing okay since until possibly 4-5 days ago. She states that she is taking Aleve at home for the pain which is improving her pain. Patient states she also has chronic abdominal pain that has been ongoing since earlier this year. She states she had a CTA done of her aorta on . However, she is not sure of the results. She is unsure she could have a urinary tract infection as well. She denies any chest pain or shortness of breath. PFSH Past Medical History Atrial Fibrillation: Yes Heart Rhythm Problems: Yes (AFIB) Cancer: Yes (skin, bladder) Cardiac Catheterization: No Cardiovascular Problems: Yes (sss, cad, afib) High Cholesterol: No Congestive Heart Failure: No Diabetes: No Diminished Hearing: No Endocrine: No Gastrointestinal Disorders: Yes GERD: Yes Genitourinary: No Hepatitis: No Hiatal Hernia: Yes Hypertension: Yes Immune Disorder: No Medical other: Yes (IBS, GERD, MACULAR DEGENERATION) Psychiatric: No Reproductive: No Thyroid Disease: Yes (hypo) Past Surgical History Abdominal Surgery: Yes (CHOLECYSTECTOMY, HIATAL HERNIA REPAIREDX3) Cardiac Surgery: No Cholecystectomy: Yes Coronary Artery Bypass Graft: No Ear Surgery: No Endocrine Surgery: No Eye Surgery: Yes (CATARACT BILATERALLY) Genitourinary Surgery: Yes (TUMOR REMOVED FROM BLADDER) Gynecologic Surgery: Yes (HYSTERECTOMY) Oral Surgery: Yes (TONSILECTOMYX3) Pacemaker: Yes Thoracic Surgery: No Tonsillectomy: Yes Other Surgery: Yes Family History Family Myocardial Infarction: Yes Social History Alcohol Use: No Tobacco Use: No Substance Use: No Allergies-Medications (Allergen,Severity, Reaction): Coded Allergies: Sulfa (Sulfonamide Antibiotics) (Unverified Allergy, Severe, 11/17/16) iodine (Unverified Allergy, Severe, 11/17/16) potassium iodide (Unverified Allergy, Severe, 11/17/16) povidone-iodine (Unverified Allergy, Severe, 11/17/16) sodium iodide (Unverified Allergy, Severe, 11/17/16) sodium iodide (Unverified Allergy, Severe, 11/17/16) ranolazine (Unverified Allergy, Unknown, 11/17/16) erythromycin base (Unverified Adverse Reaction, Severe, N/V, 11/17/16) Reported Meds & Prescriptions Reported Meds & Active Scripts Active Reported Aleve Arthritis (Naproxen Sodium) 220 Mg Tab 220 Mg PO BID Dexilant (Dexlansoprazole) 60 Mg Cap.bp Diclofenac Topical 1% Gel 1 Applic TOPICAL QID Crestor (Rosuvastatin Calcium) 5 Mg Tab 5 Mg PO DAILY Eq Motion Sickness Relief (Meclizine HCl) 25 Mg Tab 12.5 Tab PO BID Metoprolol Succinate ER 24 HR (Metoprolol Succinate) 25 Mg Tab 25 Mg PO DAILY Isosorbide Mononitrate ER (Isosorbide Mononitrate) 60 Mg Tab 60 Mg PO DAILY Gabapentin 100 Mg Cap 100 Mg PO BID Levothyroxine (Levothyroxine Sodium) 50 Mcg Tab 50 Mcg PO DAILY Nitroglycerin SL (Nitroglycerin) 0.4 Mg Subl 0.4 Mg SL DIRECTED PRN ONE TABLET UNDER THE TONGUE NEEDED FOR CHEST PAIN, MAY REPEAT EVERY FIVE MINUTES FOR A TOTAL OF 3 DOSES OR CALL 911 IF NO RELIEF Review of Systems Except as stated in HPI: all other systems reviewed are Neg Physical Exam Narrative GENERAL: Well-nourished, well-developed elderly female patient, afebrile. SKIN: Focused skin assessment warm/dry. HEAD: Normocephalic. Atraumatic. EYES: No scleral icterus. No injection or drainage. NECK: Supple, trachea midline. No JVD or lymphadenopathy. CARDIOVASCULAR: Regular rate and rhythm without murmurs, gallops, or rubs. Bilateral radial and pedal pulses 2+. RESPIRATORY: Breath sounds equal bilaterally. No accessory muscle use. Lungs sounds are clear to auscultation. GASTROINTESTINAL: Abdomen soft and nondistended. Patient has tenderness over epigastric region. MUSCULOSKELETAL: No cyanosis, or edema. Bilateral upper and lower extremities strength 5/5. Patient does have pain in her back with movement of bilateral upper and lower extremities. BACK: No obvious deformity. No CVA tenderness. Patient's tenderness to palpation of lower midline thoracic, upper lumbar spine. Data Data Last Documented VS Vital Signs Date Time Temp Pulse Resp B/P (MAP) Pulse Ox O2 Delivery O2 Flow Rate FiO2 11/17/16 11:49 98.2 76 20 186/73 (110) 100 Room Air Orders Orders Ct Thor Spine W/O Contrast (11/17/16 ) Ct Lumb Spine W/O Contrast (11/17/16 ) Chest, Pa & Lat (11/17/16 ) Iv Access Insert/Monitor (11/17/16 15:13) Complete Blood Count With Diff (11/17/16 15:13) Comprehensive Metabolic Panel (11/17/16 15:13) Urinalysis - C+S If Indicated (11/17/16 15:13) Lipase (11/17/16 15:13) Ondansetron Inj (Zofran Inj) (11/17/16 15:45) Morphine Inj (Morphine Inj) (11/17/16 15:45) Ondansetron Odt (Zofran Odt) (11/17/16 16:15) Morphine Inj (Morphine Inj) (11/17/16 16:15) Ondansetron Odt (Zofran Odt) (11/17/16 16:15) Urine Culture (11/17/16 15:30) Labs Laboratory Tests Test 11/17/16 15:30 White Blood Count 8.7 TH/MM3 Red Blood Count 4.16 MIL/MM3 Hemoglobin 11.9 GM/DL Hematocrit 36.7 % Mean Corpuscular Volume 88.1 FL Mean Corpuscular Hemoglobin 28.5 PG Mean Corpuscular Hemoglobin Concent 32.4 % Red Cell Distribution Width 14.8 % Platelet Count 175 TH/MM3 Mean Platelet Volume 8.7 FL Neutrophils (%) (Auto) 63.3 % Lymphocytes (%) (Auto) 26.2 % Monocytes (%) (Auto) 9.0 % Eosinophils (%) (Auto) 0.9 % Basophils (%) (Auto) 0.6 % Neutrophils # (Auto) 5.5 TH/MM3 Lymphocytes # (Auto) 2.3 TH/MM3 Monocytes # (Auto) 0.8 TH/MM3 Eosinophils # (Auto) 0.1 TH/MM3 Basophils # (Auto) 0.1 TH/MM3 CBC Comment DIFF FINAL Differential Comment Urine Color YELLOW Urine Turbidity HAZY Urine pH 5.0 Urine Specific [place] 1.024 Urine Protein TRACE mg/dL Urine Glucose (UA) NEG mg/dL Urine Ketones NEG mg/dL Urine Occult Blood SMALL Urine Nitrite NEG Urine Bilirubin NEG Urine Urobilinogen LESS THAN 2.0 MG/DL Urine Leukocyte Esterase LARGE Urine RBC 22 /hpf Urine WBC 21 /hpf Urine Squamous Epithelial Cells 7 /hpf Urine Transitional Epithelial Cells 1 /hpf Urine Amorphous Sediment RARE Urine Bacteria MANY /hpf Urine Mucus FEW /lpf Microscopic Urinalysis Comment CULTURE INDICATED Total Protein 7.1 GM/DL Alkaline Phosphatase 99 U/L Alanine Aminotransferase (ALT/SGPT) 15 U/L Total Bilirubin 0.4 MG/DL Anion Gap 11 MEQ/L Estimat Glomerular Filtration Rate 50 ML/MIN Lipase 47 U/L [facility] Medical Decision Making Medical Screen Exam Complete: Yes Emergency Medical Condition: Yes Medical Record Reviewed: Yes Interpretation(s) chest x-ray - CONCLUSION: 1. Mild elevation left hemidiaphragm. 2. No acute cardiomegaly disease. 3. Diffuse osteopenia and status post T12-L2 cement augmentation. No significant compression deformities. CT thoracic spine - CONCLUSION: 1. Prior compression deformities at T3, T7, T12, L1, and L2. 2. Prior cement augmentation and T12, L1, and L2. 3. Diffuse osteopenia. 4. Diffuse disc space narrowing and mild osteophyte production with a patent central canal throughout. CT lumbar spine - CONCLUSION: 1. Status post cement augmentation at T12-L2. 2. No evidence for additional compression deformities. Please note that hyperacute fractures may present without significant compression deformity. May obtain a bone scan since patient is not an MRI candidate if there is clinical concern regarding hyperacute fracture with focal physical exam findings. 3. 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 Differential Diagnosis Muscle strain compression fracture versus herniated disc versus UTI versus chronic abdominal pain Narrative Course 85-year-old female presents to the emergency department for evaluation of back pain that started 4-5 days ago after she lifted a lamp. She has history of compression deformities. Patient has been taking Aleve at home with improvement of the pain. She is ambulatory. No red flag symptoms. Patient had recent CTA of the aorta at [facility]. I was able to view this report which showed no abnormality. Patient had chest x-ray, CT of the thoracic spine and CT of the lumbar spine done in triage. I offered to do a CT scan of the abdomen/pelvis and she has not had one done since March. However , she states she is here for the back pain and does not want any further testing done on her abdomen. The pain in her abdomen is chronic and she has been following up with GI as well as her primary care physician for this. She does decline any further imaging. CBC, CMP, lipase, UA are ordered and pending. Patient is given morphine 2 mg IV, Zofran 4 mg IV for pain. Chest x-ray shows mild elevation left hemidiaphragm; 2. No acute cardiomegaly disease; 3. Diffuse osteopenia and status post T12-L2 cement augmentation. No significant compression deformities. CT thoracic spine shows 1. Prior compression deformities at T3, T7, T12, L1, and L2; 2. Prior cement augmentation and T12, L1, and L2; 3. Diffuse osteopenia; 4. Diffuse disc space narrowing and mild osteophyte production with a patent central canal throughout. CT lumbar spine shows 1. Status post cement augmentation at T12-L2 ; 2. No evidence for additional compression deformities. Please note that hyperacute fractures may present without significant compression deformity. May obtain a bone scan since patient is not an MRI candidate if there is clinical concern regarding hyperacute fracture with focal physical exam findings; 3. 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 CBC shows no acute abnormalities. CMP shows no acute abnormalities. Lipase is 47. UA shows 21 WBC, many bacteria. I discussed the case with my attending physician, Dr. Ridley. Patient will be discharged short-term prescription for Lortab for pain. She is to return here for any worsening symptoms. She will also be discharged with a prescription for Macrobid for UTI. She verbalizes agreement and understanding. The patient was discharged in stable condition with instructions, including return instructions and follow up instructions. Diagnosis Primary Impression: Back pain Qualified Codes: M54.6 - Pain in thoracic spine Additional Impression: UTI (urinary tract infection) Qualified Codes: N30.00 - Acute cystitis without hematuria Referrals: Primary Care Physician 2 days Patient Instructions: Back Pain (ED), General Instructions, Urinary Tract Infection in Women (ED) Additional Instructions: Take antibiotic as directed until gone. Take Lortab as instructed as needed for pain. Caution this can make you drowsy so do not drive after taking. Fall precautions. Follow-up with your primary care physician. Return to the emergency department for any acute worsening of symptoms. Med/Other Pt SpecificInfo: Prescription(s) given Scripts Nitrofurantoin Monohydrate Macrocrystals (Macrobid) 100 Mg Cap 100 MG PO BID for Infection for 7 Days, CAP 0 Refills Prov: Sharon Lu 11/17/16 Hydrocodone-Acetaminophen (Lortab) 5-325 Mg Tab 0.5-1 TAB PO Q6H Y for PAIN, #12 TAB 0 Refills Prov: Freddy Ridley MD 11/17/16 Disposition: 01 DISCHARGE HOME Condition: Stable Sharon Lu Nov 17, 2016 15:14
[2016-11-17] MEDS ORDERED: MORPHINE SULFATE 4 MG/ML INJ IV PUSH ONE (15:45)
[2016-11-17] MEDS ORDERED: ONDANSETRON HCL 4 MG/2 ML VIAL IV PUSH ONE (15:45)
[2016-11-17] MEDS ORDERED: MORPHINE SULFATE 4 MG/ML INJ IM ONE (16:15)
[2016-11-17] MEDS ORDERED: ONDANSETRON ODT 4 MG TAB PO ONE ×2 (16:15)
[2016-11-17 16:32] LABS: AUTOMATED NEUTROPHIL # 5.5 TH/MM3 (1.8-7.7); BASOPHIL # 0.1 TH/MM3 (0-0.2); BASOPHIL % 0.6 % (0.0-2.0); EOSINOPHIL # 0.1 TH/MM3 (0-0.4); EOSINOPHIL % 0.9 % (0.0-4.0); HEMATOCRIT 36.7 % (35.0-46.0); HEMO FLAGS DIFF FINAL; LYMPH % 26.2 % (9.0-44.0); LYMPHOCYTE # 2.3 TH/MM3 (1.0-4.8); MEAN CELL VOLUME 88.1 FL (80.0-100.0); MEAN CORPUSCULAR HEMOGLOBIN 28.5 PG (27.0-34.0); MEAN CORPUSCULAR HGB CONC 32.4 % (32.0-36.0); NEUT % 63.3 % (16.0-70.0); PLATELET COUNT 175 TH/MM3 (150-450); RED BLOOD COUNT 4.16 MIL/MM3 (4.00-5.30); RED CELL DISTRIBUTION WIDTH 14.8 % (11.6-17.2); WHITE BLOOD COUNT 8.7 TH/MM3 (4.0-11.0)
[2016-11-17 16:34] LABS: BACTERIA, URINE MANY /hpf; BLOOD, URINE SMALL (NEG); COMMENT (UR) CULTURE INDICATED; CULTURE IF INDICATED CULTURE INDICATED; GLUCOSE,URINE NEG (NEG); KETONE, URINE NEG (NEG); MUCUS URINE FEW /lpf (OCC); NITRITE,URINE NEG (NEG); SQUAMOUS EPITHELIAL CELL URINE 7 /hpf (0-5); TRANSITIONAL EPI CELLS, URINE 1 /hpf; URINE COLOR YELLOW (YELLW/STRAW)
[2016-11-17 17:04] LABS: ALKALINE PHOSPHATASE 99 U/L (45-117); ALT (GPT) 15 U/L (10-53); ANION GAP 11 MEQ/L (5-15); AST (GOT) 21 U/L (15-37); BICARBONATE 22.9 MEQ/L (21.0-32.0); BLOOD UREA NITROGEN 24 MG/DL (7-18); CHLORIDE 107 MEQ/L (98-107); GLOMERULAR FILTRATION RATE 50 ML/MIN (>89); SODIUM (NA) 141 MEQ/L (136-145); TOTAL BILIRUBIN ADULT 0.4 MG/DL (0.2-1.0)
[2016-11-17 17:05] LABS: POTASSIUM 4.2 MEQ/L (3.5-5.1)
[2016-11-17] MEDS ORDERED: HYDR-3533 PO (17:40)
[2016-11-17] MEDS ORDERED: MACR100C2 PO (17:45)
[2016-12-11] MEDS ORDERED: ACET-822 PO (09:00)
[2016-12-11] MEDS ORDERED: APIX2.5T PO (09:00)
[2016-12-11] MEDS ORDERED: VITA100036 PO (09:01)
== END 2016-11-17 18:18 | disposition home or self-care (01) ==
LOC: NEPD 11:47
DX: I48.91 Unspecified atrial fibrillation (principal); M54.5 Low back pain; M54.6 Pain in thoracic spine; N30.00 Acute cystitis without hematuria; B96.89 Other specified bacterial agents as the cause of diseases classified elsewhere
CPT/HCPCS: 71020; 72128; 72131; 80053; 81001; 83690; 85025; 87086; 96372; 99285; J2270

== ENCOUNTER → 2017-01-28 | Day surgery (SDC) | payer MEDICARE, OTHER ==
[~2017-01-28] MED LIST changes: +ACET-822 PO; +APIX2.5T PO; -APIX5TAB PO; +BUPIVACAINE HCL PF 0.5% 30 ML VIAL ONE; -DEXI60CA PO; +DEXI60CA2 PO; -NAPR220T95 PO; +PROPOFOL 200 MG/20 ML AMP IV ONE; +TRIAMCINOLONE ACETONIDE 40 MG/ML VIAL I-ARTICULR ONE; +VITA100036 PO; +methylPREDNISolone ACETATE 40 MG/ML VIAL I-ARTICULR ONE
--- NOTE | 2017-01-28 10:52 | M6 ---
cc: Crispin VIRGEN DATE 01/28/2017 DATE OF 1930 PROCEDURE Fluoroscopically guided bilateral sacroiliac joint injections. PROCEDURE NOTE History and physical was completed and signed. Consent was signed. Procedure site was marked. Medications were listed and reconciled. Pain score was recorded. Allergies were noted. Time out was taken. Fluoroscopy time was recorded where applicable. Sedation was administered or directed by Dr. Virgen. The patient was given oxygen. The patient was monitored by a registered nurse. Total procedure time was greater than 15 minutes. IV was started, blood pressure cuff, pulse oximeter and EKG were applied. The patient was placed in the prone position on a Yahir table, sedated with small amounts of propofol titrated to effect. Vital signs were monitored and remained stable throughout the procedure. The sacral area was prepped with alcohol and 10% Betadine solution and draped with sterile drapes. Fluoroscopy was used shooting from medial to lateral to clearly visualize the posterior joint line of the bilateral sacroiliac joints. Separate sterile 5 inches, 22-gauge spinal needles were advanced into the joints under fluoroscopic guidance. There was negative aspiration for blood or any other type of fluid and at each location, the patient was given 2 mL of 0.5% Marcaine, 20 mg of Depo-Medrol, 20 mg of Kenalog. Following the procedure, the patient was taken to the recovery room with stable vital signs neurologically intact. MD INDU Hilliard/KEYANNA /10:24 AM /10:50 AM
== END | disposition home or self-care (01) ==
LOC: PHSDC 08:09
PROVIDERS: ATTEND Pain Medicine Interventional Pain Medicine
DX: M54.5 Low back pain (principal)
CPT/HCPCS: G0260; J1030; J3301; 27096

== ENCOUNTER 2017-09-22 13:11 | Day surgery (SDC) | payer MEDICARE, OTHER ==
[~2017-09-22 13:11] MED LIST changes: -BUPIVACAINE HCL PF 0.5% 30 ML VIAL ONE; +CHOL10008 PO; -DEXI60CA2 PO; +DEXI60CA3 PO; -DICL1GEL7 TOPICAL; +METO1TAB42 PO; -METO25TA6 PO; -PROPOFOL 200 MG/20 ML AMP IV ONE; -TRIAMCINOLONE ACETONIDE 40 MG/ML VIAL I-ARTICULR ONE; -VITA100036 PO; -methylPREDNISolone ACETATE 40 MG/ML VIAL I-ARTICULR ONE
[2017-09-22 13:35] VITALS: BP 142/74; PULSE 88; RESP 18; TEMP 97.6; O2SAT 97
--- NOTE | 2017-09-22 17:56 | RADRPT ---
EXAM DATE: 09/22/2017 2:01 PM EDT AGE/SEX: 86 years / Female INDICATIONS: CONSULT FOR KYPHOPLASTY HISTORY OF PRESENT ILLNESS: The patient had a fall on the eighth of the month and has since had mid to lower back pain and band like pain wrapping around the lower abdomen. Pain is not getting any bett er and patient feels like it's actually gotten slightly worse in the last several days. Outpatient CT thoracic spine reveals compression fractures at the T7 and T11 levels which are subacute in appearan ce and clearly new from prior comparisons. She has had multiple lumbar kyphoplasty's over the years f or osteoporotic compression injuries and has had good results from these prior procedures TEMPERATURE: 97.6 HEART RATE: 88 BLOOD PRESSURE: 142/74 RESPIRATIONS: 18 OXIMETRY: 97% PNEUMONIA VACCINE: NO MEDICAL/SURGICAL HISTORY: Chronic renal insufficiency. Gastroesophageal reflux disease. Hypot hyroidism. HTN, AFIB, CVA, VERTIGO, SYNCOPE, HIGH CHOLESTEROL Cholecystectomy. Tonsillectomy. CAT ARACT SX, PACEMAKER, ANNY FUNDOPLICATION X2 COMPARISON: No prior exams available for comparison. SOCIAL HISTORY: No alcohol use. SMOKING HISTORY: ALLERGIES: Iodinated Contrast SULFA, ERYTHROMYCIN MEDICATIONS: Eliquis (Apixaban) 5MG b.i.d. Lopressor (Metoprolol) 25 MG/50MG q.d. GABAPENTIN 100MG b.i.d. DEXILANT 60MG q.d. ISOSORBIDE 60 q.d. LOSARTAN 50MG q.d. PROPAFENONE b.i.d. CRESTOR 5MG q.d. PHYSICAL EXAM: Mild focal tenderness to palpation in the mid and lower thoracic region. No evidence of lower extremi ty weakness or sensory deficit. IMAGING STUDIES: See above ASSESSMENT: Patient with new moderate severity compression fractures in the thoracic spine which do appear amenab le to stabilization with kyphoplasty. The patient is highly motivated to proceed having gotten good r esults from kyphoplasty's in the past PLAN: The patient will abstain from her eloquence for the remainder of the week and we will proceed on ay with two-level treatment Electronically signed by: Jesu Lorenz MD 09/22/2017 5:54 PM EDT
== END 2017-09-22 14:45 | disposition home or self-care (01) ==
LOC: HROP 13:11 → HRIP 13:12 → HROP 14:45
DX: S22.080A Wedge compression fracture of T11-T12 vertebra, initial encounter for closed fracture (principal); I12.9 Hypertensive chronic kidney disease with stage 1 through stage 4 chronic kidney disease, or unspecified chronic kidney disease; N18.9 Chronic kidney disease, unspecified; I48.91 Unspecified atrial fibrillation; E78.00 Pure hypercholesterolemia, unspecified; E03.9 Hypothyroidism, unspecified; K21.9 Gastro-esophageal reflux disease without esophagitis; M81.0 Age-related osteoporosis without current pathological fracture; Z79.01 Long term (current) use of anticoagulants; Z86.73 Personal history of transient ischemic attack (TIA), and cerebral infarction without residual deficits; Z88.2 Allergy status to sulfonamides; Z90.49 Acquired absence of other specified parts of digestive tract; Z95.0 Presence of cardiac pacemaker; W19.XXXA Unspecified fall, initial encounter

== ENCOUNTER 2017-09-25 08:26 | Inpatient (IN) ==
[2017-09-27] MEDS ORDERED: Sodium Chlor 0.9% Inj 500 ML IV.SIG PRN (00:55)
[2017-09-27] MEDS ORDERED: ceFAZolin 2 GM Premix Inj 2 GM/50 ML PIGGYBACK IV.SIG SCH (01:00)
[2017-09-27] MEDS ORDERED: Metoprolol Tartrate 25 MG Tablet PO PRN (01:05)
[2017-09-27] MEDS ORDERED: Naloxone Inj 0.4 MG/ML Vial IV.PUSH PRN (01:06)
[2017-09-27] MEDS ORDERED: Levothyroxine 50 MCG Tablet PO SCH (06:00)
[2017-09-27] MEDS ORDERED: Isosorbide Mononitrate 60 MG ER 24HR Tablet (Imdur) PO SCH (07:00)
[2017-09-27] MEDS ORDERED: PROPAFENONE 225 MG PO SCH (09:00)
[2017-09-27] MEDS ORDERED: Gabapentin 100 MG Capsule PO SCH (09:00)
--- NOTE | 2017-09-27 10:31 | P.DCO ---
- Physical Therapy Order: Evaluate and treat, Improve ambulation, Strength and gait training - Home Health Nursing Order: Medical education, Medication education-adverse effect, Wound care and dressing changes, Nursing assessment with vital signs - Case Management Consult Yes - Certification I have seen patient oZe Genao on 09/27/17. My clinical findings support the need for the requested home health care services because: Limited mobility due to disease progression, Deconditioned with increased weakness, Limited ability to care for self, High risk of falls I certify that my clinical findings support that this patient is homebound because: Post-op weakness, Unsteady gait/balance, Unsafe to leave home unassisted, Unable to use public transportation
--- NOTE | 2017-09-27 11:00 | P.DS ---
Date of admission: 09/25/17 17:25 Primary care physician: Teja Hoffmann MD Attending physician on discharge: Kiran Skinner Anticipated date of discharge: 09/27/17 Brief History from admission: Ms. Genao is a pleasant 86-year-old female with a history of hypothyroidism, sick sinus syndrome status post pacemaker, coronary artery disease, atrial fibrillation, hypertension, GERD, irritable bowel syndrome, renal insufficiency , macular degeneration, and skin cancer who had an elective kyphoplasty on 2017 and experienced chest pain radiating to her right neck with nausea and vomiting following the procedure. She was admitted to [facility] for further observation and medical management. The patient is seen in her hospital room. She denies active chest pain, nausea , or shortness of breath. at the time of my visit She states her chest pain was substernal, achy, and radiated to her right neck. It was accompanied by nausea and vomiting. She denies shortness of breath but states she is not sure whether she experienced palpitations or diaphoresis during the event due to sedation used during the procedure. DS: Diagnosis - Discharge Diagnosis (1) Atypical chest pain Status: Acute (2) Nausea & vomiting Status: Acute (3) Status post kyphoplasty Status: Acute (4) Risk for falls Status: Acute (5) Weakness generalized Status: Acute (6) Compression fracture of body of thoracic vertebra Status: Acute (7) Atrial fibrillation Status: Chronic DS: Summary Hospital Course: Patient underwent elective kyphoplasty 09/25/2017 and experienced chest pain radiating to the right side of her neck with associated nausea and vomiting following the procedure. Patient was admitted for further observation and medical management. Serial cardiac enzymes and EKGs were obtained and patient ruled out for ACS. Patient had no further recurrence of chest pain. Patient was cleared to resume home Eliquis per IR. Patient was cleared for discharge by IR. Patient was seen and evaluated by PT who recommended home health PT at time of discharge. Case management was consulted to assist with discharge planning. - Time Spent with Patient Total time spent providing and/or coordinating discharge services: Greater than 30 minutes Exam Vital signs: Vital Signs 09/27/17 02:52 09/27/17 04:00 09/27/17 08:00 Temperature 98.4 F 97.8 F 97.9 F Pulse Rate 63 66 79 Respiratory Rate 18 18 17 Blood Pressure 121/57 L 132/61 109/56 L Pulse Oximetry 95 94 L 95 Intake & Output 09/26/17 09/27/17 09/27/17 18:59 06:59 18:59 Intake Total 240 / 240 Balance 240 / 240 Weight 70 kg Intake: Oral 240 / 240 Other: # Voids 2 Narrative: GENERAL: This is a well developed, well nourished elderly female patient, I[place]. Awake and alert. SKIN: Warm and dry. HEAD: Atraumatic. Normocephalic. EYES: Pupils equal and round. No scleral icterus. No injection or drainage. ENT: No nasal bleeding or discharge. Mucous membranes pink and moist. NECK: Trachea midline. No JVD. CARDIOVASCULAR: Regular rate and rhythm. RESPIRATORY: No accessory muscle use. Clear to auscultation. Breath sounds equal bilaterally. GASTROINTESTINAL: Abdomen soft, non-tender, nondistended. Hepatic and splenic margins not palpable. MUSCULOSKELETAL: Extremities without clubbing, cyanosis, or edema. No obvious deformities. NEUROLOGICAL: Awake and alert. No obvious cranial nerve deficits. Motor grossly within normal limits. Able to move all extremities spontaneously. Nonfocal. Normal speech. PSYCHIATRIC: Appropriate mood and affect; insight and judgment normal. Results Labs on day of discharge: Labs from last 24 hours 09/27/17 09/26/17 09/26/17 08:00 04:18 04:18 WBC Pending 6.5 RBC Pending 3.44 L Hgb Pending 9.9 L Hct Pending 30.3 L MCV 88.0 MCH 28.7 MCHC 32.6 RDW 15.2 Plt Count Pending 50 L MPV 8.4 Neut % (Auto) 83.0 H Lymph % (Auto) 12.1 [place] % (Auto) 4.5 Eos % (Auto) 0.0 Baso % (Auto) 0.4 Neut # (Auto) 5.4 Lymph # (Auto) 0.8 L [place] # (Auto) 0.3 Eos # (Auto) 0.0 Baso # (Auto) 0.0 CBC Comment AUTO DIFF WBC Differential Pending Differential Comment Pending AUTO DIFF CONFIRMED Platelet Estimate LOW L Plt Morphology Comment NORMAL Ovalocytes 1+ H PT INR APTT Sodium Potassium Chloride Carbon Dioxide Anion Gap BUN Creatinine Estimated GFR Random Glucose Calcium Total Bilirubin AST ALT Alkaline Phosphatase Total Creatine Kinase Troponin I Total Protein Albumin TSH 3rd Generation 1.620 09/26/17 09/25/17 09/25/17 04:18 23:45 15:52 WBC RBC Hgb Hct MCV MCH MCHC RDW Plt Count MPV Neut % (Auto) Lymph % (Auto) [place] % (Auto) Eos % (Auto) Baso % (Auto) Neut # (Auto) Lymph # (Auto) [place] # (Auto) Eos # (Auto) Baso # (Auto) CBC Comment WBC Differential Differential Comment Platelet Estimate Plt Morphology Comment Ovalocytes PT INR APTT Sodium 141 Potassium 4.9 Chloride 108 H Carbon Dioxide 24.0 Anion Gap 9 BUN 17 Creatinine 1.19 H Estimated GFR 43 L Random Glucose 116 H Calcium 8.3 L Total Bilirubin 0.2 AST 18 ALT 12 Alkaline Phosphatase 103 Total Creatine Kinase 42 41 38 Troponin I LESS THAN 0.02 L LESS THAN 0.02 L LESS THAN 0.02 L Total Protein 6.1 L Albumin 2.9 L TSH 3rd Generation 09/25/17 09/25/17 09/25/17 09:50 09:50 09:50 WBC 5.0 RBC 3.64 L Hgb 10.3 L Hct 32.3 L MCV 88.7 MCH 28.2 MCHC 31.8 L RDW 15.8 Plt Count 51 L MPV 8.4 Neut % (Auto) 61.5 Lymph % (Auto) 25.2 [place] % (Auto) 9.6 H Eos % (Auto) 2.8 Baso % (Auto) 0.9 Neut # (Auto) 3.1 Lymph # (Auto) 1.3 [place] # (Auto) 0.5 Eos # (Auto) 0.1 Baso # (Auto) 0.0 CBC Comment AUTO DIFF WBC Differential Differential Comment AUTO DIFF CONFIRMED Platelet Estimate LOW L Plt Morphology Comment NORMAL Ovalocytes PT 11.5 INR 1.1 APTT 22.9 L Sodium 141 Potassium 4.4 Chloride 108 H Carbon Dioxide 23.5 Anion Gap 10 BUN 18 Creatinine 1.26 H Estimated GFR 40 L Random Glucose 89 Calcium 8.7 Total Bilirubin AST ALT Alkaline Phosphatase Total Creatine Kinase Troponin I Total Protein Albumin TSH 3rd Generation - Impressions Ms. Genao is a pleasant 86-year-old female with a history of hypothyroidism, sick sinus syndrome status post pacemaker, coronary artery disease, atrial fibrillation, hypertension, GERD, irritable bowel syndrome, renal insufficiency , macular degeneration, and skin cancer who had an elective kyphoplasty on 2017 and experienced chest pain radiating to her right neck with nausea and vomiting following the procedure. She was admitted to [facility] for further observation and medical management. Atypical chest pain, resolved Patient has no complaints of chest pain -Serial EKGs and enzymes negative -Patient instructed to follow-up with her hotel staff member Dr. Stevenson following discharge -Continuous cardiac telemetry to monitor cardiac rate and rhythm -Monitor vital signs Compression fracture T11 s/p Kyphoplasty T11 -Evaluated by PT, recommended home health PT at discharge -Patient cleared for discharge from IR standpoint Atrial fibrillation, chronic, rate controlled CAD HTN HLD -Patient resumed on home medications Hypothyroidism TSH 1.620 -Continue patient on home dose of levothyroxine DVT prophylaxis -SCDs/TEDs -Eliquis Discharge Plan - Discharge Disposition Patient Disposition: W/Home Health Service - Discharge Condition Condition: Stable - Discharge Order Discharge Orders: Discharge Order (Routine); Ordered 09/27/17 Ordered By: Macy Chowdhury - Discharge Details Anticipated Discharge Date/Time: 09/27/17 10:11 - Physicians Team Primary Care Provider: Teja Hoffmann Attending Provider: Kiran Skinner Other Providers: Veda Boone MD - Rxs /Orders / Referrals /Forms Prescriptions: Continue apixaban 2.5 mg Tablet 5 mg PO BID cholecalciferol (vitamin D3) 1,000 unit Capsule 1,000 unit PO DAILY dexlansoprazole 60 mg Capsule,Biphase Delayed Releas 60 mg PO DAILY isosorbide mononitrate 60 mg Tablet Extended Release 24 Hr 60 mg PO DAILY levothyroxine 50 mcg Tablet 50 mcg PO DAILY losartan 50 mg Tablet 50 mg PO DAILY meclizine 25 mg Tablet 12.5 mg PO BID PRN (Reason: Vertigo) metoprolol succinate 25 mg Tablet Extended Release 24 Hr 25 mg PO DAILY nitroglycerin 0.4 mg Tablet, Sublingual 0.4 mg SUBLINGUAL DIRECTED PRN (Reason: Chest Pain) propafenone 225 mg Capsule,Extended Release 12 Hr 225 mg PO Q12H rosuvastatin 5 mg Tablet 5 mg PO DAILY Discontinued gabapentin 100 mg Capsule 100 mg PO BID Referrals: Balwinder Stevenson MD [Physician] - See Instructions Jesu Lorenz MD [Physician] - See Instructions Teja Hoffmann MD [Primary Care Provider] - See Instructions - Discharge Instructions Print Language: [place] Patient Printed Instructions: Chest Pain (DC), Fall Prevention for Older Adults (DC), Acute Nausea and Vomiting (DC) - Post Discharge Care Plan Care Plan Goals: Your Health Problems: Goals to Promote Your Health: * To prevent worsening of your condition * To maintain your health at the optimal level Directions to Meet Your Goals: * Take your medications as prescribed * Follow your dietary instruction * Follow activity as directed * Keep your appointments as scheduled * Take your immunizations and boosters as scheduled * If your symptoms worsen call your PCP * If no PCP go to Urgent Care or Emergency Room Smoking is dangerous to your health. Avoid second hand smoke. You may reach the 24-hour crisis hotline for domestic abuse at . - Discharge Information Discharge Date/Time: 09/27/17 14:32 Physical Exam GENERAL: This is a well-developed well-nourished pleasant elderly female patient , in no apparent distress. Sitting up in bed eating breakfast. SKIN: No rashes, ecchymoses or lesions. Warm and dry. HEAD: Atraumatic. Normocephalic. EYES: No scleral icterus. No injection or drainage. ENT: Nose without bleeding, purulent drainage. MMM. NECK: Trachea midline. No JVD. CARDIOVASCULAR: Regular rate and rhythm without murmurs, gallops, or rubs. RESPIRATORY: Clear to auscultation. Breath sounds equal bilaterally. No wheezes , rales, or rhonchi. GASTROINTESTINAL: Abdomen soft, non-tender, nondistended. No guarding. MUSCULOSKELETAL: Extremities without clubbing, cyanosis. No calf tenderness. NEUROLOGICAL: Awake and alert. Oriented 3. Motor and sensory grossly within normal limits. Normal speech. PSYCHIATRIC: Calm and cooperative. Appropriate mood and affect. Normal judgment and insight.
== END 2017-09-27 14:32 | disposition home health service (06) ==
LOC: UNDODISOB → N07 08:26 → OBSVTOIN 17:25 → INTOOBSV 17:25 → N07 17:25
PROVIDERS: ADMIT Hospitalist; ATTEND Hospitalist